=== PATIENT | female | born 1995 | race African-American/Black ===

== ENCOUNTER 2020-10-15 08:28 | Emergency (ER) | payer OTHER ==
[~2020-10-15] VITALS: Ht 165.1 cm; Wt 83.6 kg
[2020-10-15 08:29] VITALS: BP 130/75
[2020-10-15] MEDS ORDERED: IBUP-1022 PO (08:33)
[2020-10-15] MEDS ORDERED: CIPROFLOXACIN HC OTIC SUSPENSION AS ONE (09:25)
[2020-10-15] MEDS ORDERED: IBUPROFEN 800 MG TAB PO ONE (09:25)
== END 2020-10-15 09:46 | disposition home or self-care (01) ==
LOC: M ED 08:28
DX: H60.92 Unspecified otitis externa, left ear (principal)

== ENCOUNTER 2020-10-27 15:52 | Emergency (ER) | payer OTHER ==
[~2020-10-27] VITALS: Ht 165.1 cm; Wt 83.2 kg
[~2020-10-27 15:52] MED LIST: IBUP-1022 PO
[2020-10-27] MEDS ORDERED: IBUP80TA PO (15:59)
[2020-10-27] MEDS ORDERED: KETOROLAC 60MG 2ML VIAL IM ONE (16:40)
[2020-10-27] MEDS ORDERED: CYCL5TAB PO (16:41)
[2020-10-27] MEDS ORDERED: NAPR-837 PO (16:41)
[2020-10-27 17:30] VITALS: BP 135/73
== END 2020-10-27 17:33 | disposition home or self-care (01) ==
LOC: M ED 15:52
DX: M54.5 Low back pain (principal)
CPT/HCPCS: 96372; 99283; J1885

== ENCOUNTER 2021-08-04 16:15 | Emergency (ER) | payer OTHER ==
[~2021-08-04] VITALS: Ht 165.1 cm; Wt 81.8 kg
[~2021-08-04 16:15] MED LIST changes: +CYCL5TAB PO; +IBUP80TA PO; +NAPR-837 PO
[2021-08-04] MEDS ORDERED: ONDANSETRON 4MG/2ML VIAL IV ONE (18:15)
[2021-08-04] MEDS ORDERED: NS 1,000 ML IV ONE (18:15)
[2021-08-04] MEDS ORDERED: KETOROLAC 30 MG/ML 1ML VIAL IV ONE (18:15)
[2021-08-04 19:40] LABS: BASO % 0.1 % (0.0-1.0); HEMATOCRIT 42.3 % (36.0-47.0); HEMOGLOBIN 14.3 g/dl (12.0-15.5); LYMPH # 0.8 10^3/uL (1.5-5.0); LYMPH % 10.4 % (24.0-44.0); MEAN CORPUSCULAR HEMOGLOBIN 30.8 pg (27.0-33.0); MEAN CORPUSCULAR HGB CONC 33.8 g/dl (32.0-36.5); MONO # 0.4 10^3/uL (0.0-0.8); NEUTROPHILS # 6.2 10^3/uL (1.5-8.5); NEUTROPHILS % 84.1 % (36.0-66.0); PLATELET COUNT, AUTOMATED 286 10^3/uL (150-450); RED BLOOD COUNT 4.65 10^6/uL (4.00-5.40); WHITE BLOOD COUNT 7.3 10^3/uL (4.0-10.0)
[2021-08-04 20:03] LABS: ALBUMIN 3.7 GM/DL (3.2-5.2); ALT/SGPT 22 U/L (12-78); BILIRUBIN,DIRECT 0.2 MG/DL (0.0-0.2); BILIRUBIN,TOTAL 0.6 MG/DL (0.2-1.0); BLOOD UREA NITROGEN 12 MG/DL (7-18); CALCIUM LEVEL 8.8 MG/DL (8.5-10.1); CARBON DIOXIDE LEVEL 27 MEQ/L (21-32); CHLORIDE LEVEL 102 MEQ/L (98-107); CREATININE FOR GFR 0.99 MG/DL (0.55-1.30); GLOMERULAR FILTRATION RATE > 60.0 (>60); GLUCOSE, FASTING 96 MG/DL (70-100); LIPASE 65 U/L (73-393); POTASSIUM SERUM 3.6 MEQ/L (3.5-5.1); SODIUM LEVEL 136 MEQ/L (136-145); TOTAL PROTEIN 7.8 GM/DL (6.4-8.2)
[2021-08-04] MEDS ORDERED: ISOVUE-370 76% 100ML VIAL As Ordered ONE (20:33)
[2021-08-04 21:10] VITALS: BP 117/57
[2021-08-04 21:29] LABS: APPEARANCE, URINE CLEAR (CLEAR); BACTERIA, URINE AUTO NEGATIVE (NEGATIVE); BILIRUBIN, URINE AUTO NEGATIVE (NEGATIVE); BLOOD, URINE BLOOD NEGATIVE (NEGATIVE); COLOR, URINE YELLOW (YELLOW); GLUCOSE, URINE (UA) AUTO NEGATIVE (NEGATIVE); KETONE, URINE AUTO NEGATIVE (NEGATIVE); LEUKOCYTE ESTERASE, URINE AUTO NEGATIVE (NEGATIVE); MUCUS, URINE SMALL (NEGATIVE); NITRITE, URINE AUTO NEGATIVE (NEGATIVE); PROTEIN, URINE AUTO NEGATIVE (NEGATIVE); RBC, URINE AUTO 1 /HPF (0-3); SPECIFIC GRAVITY URINE AUTO 1.036 (1.002-1.035); SQUAMOUS EPITHELIAL CELL UR AU 2 /HPF (0-6); UROBILINOGEN, URINE AUTO 0.2 mg/dL (0.0-2.0); WBC, URINE AUTO 6 /HPF (0-3)
[2021-08-04] MEDS ORDERED: methocarbamoL 750 MG TAB PO ONE (21:50)
[2021-08-04] MEDS ORDERED: METH-1165 PO (21:50)
[2021-08-04] MEDS ORDERED: ONDA4TAB6 PO (21:50)
[2021-08-04] MEDS ORDERED: NAPR-837 PO (21:50)
== END 2021-08-04 22:19 | disposition home or self-care (01) ==
LOC: M ED 16:15
DX: R10.9 Unspecified abdominal pain (principal); R11.2 Nausea with vomiting, unspecified; M54.50 Low back pain, unspecified
CPT/HCPCS: 74177; 80048; 80076; 81001; 83690; 85025; 96361; 96374; 96375; 99284; J1885; J2405; Q9967